=== PATIENT | male | born 1955 | race American Indian/Alaskan Native ===

== ENCOUNTER 2018-07-11 11:31 | Day surgery (SDC) | payer BC ==
[2018-07-11] MEDS ORDERED: DILAUDID IV PRN (13:06)
--- NOTE | 2018-07-11 13:06 | Anesthesia Consultation ---
Anesthesia Consult and Med Hx Date of service: 07/11/18 - Airway Anesthetic Teeth Evaluation: Poor ROM Head & Neck: Adequate Mental/Hyoid Distance: Adequate Mallampati Class: Class II Intubation Access Assessment: Probably Good - Pulmonary Exam CTA: Yes - Cardiac Exam Cardiac Exam: RRR - Pre-Operative Health Status ASA Pre-Surgery Classification: ASA3 Proposed Anesthetic Plan: General - Cardiovascular System Hx Hypertension: Yes (x 20 yrs) - Central Nervous System Hx Psychiatric Problems: No - Other Systems Hx Alcohol Use: Yes (Occas) Hx Cancer: No
--- NOTE | 2018-07-11 13:06 | Anesthesia Day of Surgery ---
Anesthesia Day of Surgery - Day of Surgery Patient Examined: Yes Patient H&P Reviewed: Yes Patient is NPO: Yes
[2018-07-11] MEDS ORDERED: LACTATED RINGERS 1,000 ML IV SCH ×2 (14:00)
[2018-07-11] MEDS ORDERED: VERSED IV NR (14:00)
[2018-07-11] MEDS ORDERED: PEPCID IV NR (14:00)
[2018-07-11] MEDS ORDERED: ANCEF/STERILE WATER 2 GM/20 ML IV NR (14:00)
[2018-07-11] MEDS ORDERED: ROCEPHIN/NS 2 GM/100 ML 2 GM/100 ML BAG IV NR (14:30)
[2018-07-11] MEDS ORDERED: XYLOCAINE MPF 2% ONE (15:34)
[2018-07-11] MEDS ORDERED: SUBLIMAZE ONE (15:35)
[2018-07-11] MEDS ORDERED: DIPRIVAN 10 MG/ML IV ONE (15:35)
[2018-07-11] MEDS ORDERED: NACL 0.9% 1000 ML 1,000 ML ONE (15:44)
[2018-07-11] MEDS ORDERED: NACL 0.9% 1000 ML 1,000 ML IV SCH (15:44)
--- NOTE | 2018-07-11 15:56 | Short Stay Summary ---
Short Stay Documentation Date of service: 07/11/18 - History H&P: obtained from office - Allergies and Medications Current Medications: Allergies No Known Allergies Allergy (Unverified 07/05/18 15:25) Home Medications Medication Instructions Recorded Confirmed Last Taken Type Exforge Hct 10-320-25 mg Tab 1 tab PO DAILY 07/11/18 07/11/18 07/10/18 History Terazosin 10 mg PO DAILY 07/11/18 07/11/18 07/10/18 History Active Medications Famotidine (Pepcid) 20 mg IV PREOP NR Stop: 07/11/18 19:00 Last Admin: 07/11/18 14:29 Dose: 20 mg Documented by: Hydromorphone HCl (Dilaudid) 0.5 mg IV Q10MIN PRN PRN Reason: Pain , Severe (7-10) Stop: 07/11/18 23:59 Lactated Ringer's (Lactated Ringers) 1,000 mls @ 100 mls/hr IV DIRECT TEENA Last Admin: 07/11/18 13:40 Dose: 100 mls/hr Documented by: Ceftriaxone Sodium (Rocephin/Ns 2 Gm/100 Ml) 2 gm in 100 mls @ 200 mls/hr IV PREOP NR Stop: 07/11/18 16:00 Sodium Chloride (Nacl 0.9% 1000 Ml) 1,000 mls @ 100 mls/hr IV DIRECT TEENA Stop: 07/11/18 23:59 Last Admin: 07/11/18 15:40 Dose: 100 mls/hr Documented by: Midazolam HCl (Versed) 2 mg IV PREOP NR Stop: 07/11/18 23:59 Last Admin: 07/11/18 13:43 Dose: 2 mg Documented by: - Brief post op/procedure progress note Date of procedure: 07/11/18 Pre-op diagnosis: elev psa bph Post-op diagnosis: same Procedure: cysto prost bx Findings: very lg median lobe john uo not vis; very large lat lobes PUS 120 Surgeon: HARVEY SARMIENTO Estimated blood loss: minimal Pathology: list Specimen disposition: to lab Condition: stable - Hospital course Hospital course: orpacuhome - Disposition Condition at discharge: Good Disposition: DC- TO HOME OR SELFCARE Short Stay Discharge Plan Activity: advance as tolerated Diet: advance as tolerated Follow up with: HARVEY SARMIENTO MD [Staff Physician] - 7 Days
[2018-07-11] MEDS ORDERED: ZOFRAN ONE (17:30)
[2018-07-11] MEDS ORDERED: WATER FOR IRRIG STERILE IR ONE (17:36)
--- NOTE | 2018-07-11 18:15 | Post Anesthesia Evaluation ---
- Post Anesthesia Evaluation Patient Participated: Yes Airway Patent: Yes Stable Respiratory Function: Yes Nausea/Vomiting: No Temp > 96.8F: Yes Pain Manageable: Yes Adequeate Hydration: Yes Anesthesia Complications: No
[2018-07-11] MEDS ORDERED: NACL 0.9% 1,000 ML IR ONE (18:31)
[2018-07-11] MEDS ORDERED: WATER FOR IRRIG STERILE ONE (18:41)
--- NOTE | 2018-07-11 19:21 | Ultrasound Report ---
FINAL REPORT EXAM: US GUIDE INTRAOPERATIVE HISTORY: PROSTATE TECHNIQUE: Ultrasound prostate PRIORS: None. FINDINGS: Ultrasound guidance provided for prostate biopsy. Please see operative report for further details IMPRESSION: Ultrasound guidance for prostate biopsy
[2018-07-11 20:20] VITALS: BP 140/84
--- NOTE | 2018-07-12 07:52 | XRay Report ---
Operative KUB: Prostate biopsy. There are degenerative proliferative bony changes involving the L5-S1 level. The bony structures otherwise appear unremarkable. There are no soft tissue abnormalities appreciated.
--- NOTE | 2018-07-18 05:21 | Operative Report ---
UROLOGY OPERATIVE NOTE PREOPERATIVE DIAGNOSES: 1. Benign prostatic hypertrophy. 2. Elevated PSA. POSTOPERATIVE DIAGNOSES: 1. Benign prostatic hypertrophy. 2. Elevated PSA. PROCEDURE: Cystoscopy, prostate ultrasound, prostate biopsy. ESTIMATED BLOOD LOSS: Minimal. COMPLICATIONS: None. FINDINGS: Large prostate, 120 mL. Cystoscopy; large lateral lobes, very large median lobe, unable to see the ureteral orifice due to the size of the median lobe, easily bleeds with passage of the scope. Rectal exam; large prostate, no nodules. CLINICAL INDICATIONS: Counseled on RCBA, antibiotics, SCDs, desired to proceed. The patient had been counseled on options in the past, had been considering, had options of the biopsy versus watching versus other options discussed including second opinion and then decided to proceed with biopsy. DESCRIPTION OF PROCEDURE: The patient was transferred to OR suite in supine position, anesthesia, dorsal lithotomy, prepped and draped in standard fashion. A 22-Togolese scope passed, normal penile urethra, bulbar urethra, prostatic urethra, demonstrated very large lateral lobes. Upon entering the bladder, there was a very large median lobe. There was some oozing from the prostate just with passage of the scope. Pancystoscopy 30 and 70 degree lens is limited due to the large size of the prostate, but there were no obvious tumors with areas that were not obscured, unable to visualize the ureteral orifices bilaterally due to the occlusion from the prostatic large median lobe. At this point, scope was removed. Rosa catheter placed. Prostate ultrasound placed and measurements done, recorded in our x-ray, but total volume was 120mL. At this point, our needle guide biopsy and ultrasound was used to target. Biopsies were taken of the right and left base, right and left mid, right and left apex. Then the right lateral, right and left lateral base, right and left mid base, right and left apex and then transition zone and then additional biopsies were taken of areas of the base consistent with other previous workup including ConfirmMDx. At this point this, there was minimal bleeding, Proctofoam placed. The patient awakened and transferred to the PACU in good and stable condition. JOB# [id number] ATS/NTS
== END 2018-07-11 11:32 | disposition home or self-care (01) ==
LOC: OR 11:31
PROVIDERS: ATTEND Urology
DX: N40.0 Benign prostatic hyperplasia without lower urinary tract symptoms (principal); N41.1 Chronic prostatitis; I10 Essential (primary) hypertension; Z79.899 Other long term (current) drug therapy; Z72.89 Other problems related to lifestyle
CPT/HCPCS: 55700; 74018; 76942; 82803; 88305; A4217; C1758; J0696; J2250; J2405; J2704; J3010; J7030; J7120; 76998